=== PATIENT | male | born 1955 | race Caucasian/White ===

== ENCOUNTER 2017-02-10 15:45 | Inpatient (IN) | payer OTHER ==
[2017-01-31 15:36] LABS: ABSOLUTE BASOPHILS 0.1 thou/uL (0.0-0.2); ABSOLUTE EOSINOPHILS 0.2 thou/uL (0.0-0.7); ABSOLUTE LYMPHOCYTES 2.1 thou/uL (0.8-5.3); ABSOLUTE MONOCYTES 0.4 thou/uL (0.0-1.2); ABSOLUTE NEUTROPHILS 3.4 thou/uL (1.6-8.1); EOSINOPHILS 3.1 %; HEMATOCRIT 44.2 % (42.0-52.0); LYMPHOCYTES 33.9 %; MCH 30.9 pg (26.0-34.0); MCHC 33.9 g/dL (28.0-37.0); MCV 91.2 fL (80.0-100.0); MONOCYTES 7.2 %; MPV 7.8 fl. (7.2-11.1); NUCLEATED RBCS 0 /100WBC; PLATELET COUNT* 171 thou/uL (150-400); POLYS 54.8 %; RBC 4.85 mil/uL (4.50-6.00); RDW-CV 13.3 % (10.5-14.5); WBC 6.1 thou/uL (4.0-11.0)
[2017-01-31 15:42] LABS: APTT 28.5 Seconds (25.0-31.3)
[2017-01-31 15:47] LABS: CALCIUM 8.7 mg/dL (8.5-10.1); CREATININE 1.1 mg/dL (0.6-1.3); POTASSIUM 3.9 mmol/L (3.5-5.1)
[2017-01-31 15:52] LABS: ALBUMIN 3.9 g/dL (3.4-5.0); TOTAL BILIRUBIN 1.1 mg/dL (<0.1-1.0); TOTAL PROTEIN 6.9 g/dL (6.4-8.2)
--- NOTE | 2017-01-31 16:11 | EKG ---
[place] [address] ELECTROCARDIOGRAM REPORT Name: MIGEL SOTO Room: PRE IN [facility]#: [id number] Admission: Attend Phys: Demetrius Dumont Discharge: Date of : 59 Report #: [id number] THIS REPORT FOR: //name// [facility] Test Date: 2017-01-31 Test Time: 15:35:33 Pat Name: MIGEL SOTO Department: Room: Gender: M Literary Writer: : 1955 Requested By: Sean Lewis Order Number: [id number] Reading MD: Timur Ibarra Measurements Intervals Triangle Rate: 60 P: 51 CO: 176 QRS: 60 QRSD: 113 T: 9 QT: 421 QTc: 421 Interpretive Statements Sinus rhythm Borderline intraventricular conduction delay No previous ECG available for comparison Electronically Signed On 01-31-2017 16:11:23 SUPERVISOR [employer]URNA[employer] ROOM by Timur Ibarra [email or web address] <ELECTRONICALLY SIGNED> By: Timur Ibarra MD, [facility] 01/31/17 1611 1535 1535 Timur Ibarra MD, FACC /EPI
[2017-02-02 10:59] LABS: GLYCOHEMOGLOBIN (HGB A1C) 5.4
[~2017-02-10] VITALS: Ht 177.8 cm; Wt 102.1 kg
[~2017-02-10 15:45] MED LIST: DESVENLAFAXINE100 M2 PO; MOBIC15 MG PO; OMEGA-31000 M1 PO; TRUSOPT OCUMETE10 ML TOP; VITAMIN D35000 UNIT PO; XALATAN2.5 ML OPHTHALMIC
[2017-02-14 09:25] VITALS: BP 164/101
[2017-02-14 14:25] VITALS: BP 162/84
[2017-02-14 16:00] VITALS: BP 137/86
--- NOTE | 2017-02-14 18:45 | NUR ---
ASSUMED CARE OF PATIENT AFTER TRANSFER FROM PACU AT APPROXIMATELY 1430. PATIENT ORIENTED TO ROOM AND HAS SUPPORTIVE FAMILY AT BEDSIDE. ALERT AND ORIENTED X4. ASSESSMENT COMPLETED AND IS CHARTED. VSS ON ROOM AIR. PATIENT HAS HAD NO COMPLAINTS OF NAUSEA THIS SHIFT. PATIENT SAYS PAIN IS NOT BAD BUT WANTS TO START ON PAIN MEDS TO STAY AHEAD OF PAIN. GAVE 2 OXY AT APPROXIMATELY 1830. PATIENTS VSS HAVE BEEN STABLE BUT PULSE HAS BECOME ELEVATED IN THE LAST HOUR. PULSE OX FINGER PROBE CHANGED AND STILL SHOWING ELEVATED ON MONITOR. CHECKED VITALS ON DYNAMAP AND PULSE REMAINS ELEVATED. PAGED DR KENNEDY WITH THIS INFORMATION. HORLY ROUNDS HAVE BEEN MAINTAINED WHILE PATIENT WAS ON UNIT. CALL LIGHT IS WITHIN REACH. NURSING WILL CONTINUE TO MONITOR.
--- NOTE | 2017-02-14 18:52 | NUR ---
PATIENTS PULE HAS BECOME ELEVATED. CONTINUOUS PULSE MONITOR SHOWS PULSE RANGING FROM LOW 90'S TO MID 200'S. PULSE OF FINGER PROBED CHANGED AND STILL SHOWING ELEVATED PULSE. VITALS WERE TAKEN WITH DYNAMAP AND FOLLOWS. BP 126/81. PULSE 102. TEMP 98.8. RESPIRATIONS 16. OXYGEN SATURATION AT 93% ON ROOM AIR.
[2017-02-14 18:55] VITALS: BP 126/81
[2017-02-14 20:05] VITALS: BP 114/81
--- NOTE | 2017-02-14 23:18 | NUR ---
PATIENT ALERT AND ORIENTED. VITALS STABLE. CONTINUOUS PULSE OX IN PLACE. HEART RATE ON MONITOR IS ELEVATED TO MID 200S FOR A COUPLE OF SECONDS AND DROPS BACK DOWN TO 90-110. WHEN CHECKED MANUALLY HEART RATE WAS 102. DIFFERENT MONITOR AND PROBE APPLIED. HEART RATE CONTINUES TO BE ELEVATED ON CONTINUOUS PULSE OX. PHYSICIAN NOTIFIED. ORDERS RECEIVED TO TRANSFER PATIENT TO TELE. EKG RESULTS CALLED TO PHYSICIAN BY NURSING TOP CLEANER. DENIES CHEST PAIN AND ANY CARDIAC HISTORY. NURSING WILL CONTINUE TO MONITOR.
--- NOTE | 2017-02-15 | NUR ---
TRANSFER NOTE: PT UP TO TELE FLOOR AT THIS TIME. NO PAIN. AT BEDSIDE. IVF INFUSING. AGREE WITH ASSESSMENT CHARTED. TELE MONITOR APPLIED, TRACING NSR RATE 90'S NOT ECTOPY. ICE PACK TO L HIP FOR COMFORT. ORIENTED TO ROOM. WILL CONT TO MONITOR.
--- NOTE | 2017-02-15 01:57 | NUR ---
REC REPORT FROM TELE-RN AT THIS TIME.
--- NOTE | 2017-02-15 03:48 | NUR ---
I REVIEWED PREVIOUS RN'S ASSESSMENT, I AM IN AGREMENT WITH IT. PT AND I DISCUSSED PAIN CONTROL, PT REC PO PAIN MEDS DECIDED TO TRY 5 MG VS 10 MG AND WILL MAKE NEEDS KNOWN IF IT DOESN'T HELP HIS 1/10 PAIN LEVEL, PT REPORTED HE IS WANTING TO STAY ON THE PAIN MEDS FOR THE FIRST DAY AND UNTIL HE'S UP WITH THERAPY, DRESSING TO L-HIP C/D/I, ICE PACKS BEING UTILIZED, AREA NOTED TO HAVE SOME BRUISING WITH NO SWELLING NOTED, FALL PRECAUTIONS IN PLACE AND PT ABLE TO VOICE NEEDS. WILL CONT TO MONITOR.
[2017-02-15 03:58] VITALS: BP 113/76
[2017-02-15 05:07] LABS: HEMATOCRIT 37.7 % (42.0-52.0)
--- NOTE | 2017-02-15 06:58 | NUR ---
NO ACUTE CHANGES WITH PT OVER NIGHT, MEDS PER CHARTING, FALL PRECAUTIONS REMAIN IN PLACE, SR ON THE MONITOR, DRESSING REMAINED C/D/I, AND VSS. WILL CONT TO MONITOR.
[2017-02-15 08:00] VITALS: BP 120/80
[2017-02-15 11:02] VITALS: BP 113/76
[2017-02-15 12:00] VITALS: BP 133/68
[2017-02-15 12:01] VITALS: BP 113/76
--- NOTE | 2017-02-15 12:04 | NUR ---
MET WITH PT TO DISCUSS HOME SITUATION/DC PLANNING. PT LIVES WITH , PLANS TO RETURN HOME AT DC. PT HAS BEEN INDEPENDENT AND ACTIVE, USES NO EQUIPMENT AND WORKS OUTSIDE THE HOME. IS RETIRED AND WILL BE WITH PT AT HOME AT DC. PT HAS DC ORDERS. NO HH OR OUTPT ORDERED, PT STATES HE DISCUSSED WITH DR FRANKS POST DC INSTRUCTIONS. PT WORKED WITH THERAPY, NEEDS WALKER, OBTAINED APPROVAL FROM [employer] TO DISPENSE WALKER. VARUN/PT HERE AND DISPENSED WALKER TO PT. CALLED IN [place] TO [email or web address] ON [address], COPAY IS $42.05. PT MADE AWARE, GAVE PT COPAY ELIQUIS CARD. PT STATES HE HAS A F/U APPT ON 03/02 AREADY SCHEDULED. PT DENIES OTHER NEEDS. DISCUSSED WITH SILAS GONZALEZ
[2017-02-15] MEDS ORDERED: ELIQUIS2.5 MG PO (13:58)
[2017-02-15] MEDS ORDERED: OXYCODONE HCL 55 MG PO (13:59)
--- NOTE | 2017-02-15 14:40 | NUR ---
ORDER RECEIVED TO DISCHARGE PATINET HOME TO SELF CARE. MED REC, MEDICATION EDUCATION , STROKE EDUCATION, AND NEED FOR FOLLOW UP APPOINTMENTS FOR POST SURGICAL ASSESSMENT. PT WALKED PATINET AND ASSESSED GAIT WITH WALKER USAGE. VITAL SIGNS STABLE AND PATIENTS PAIN WELL CONTROLLED WITH PO MEDICATIONS. IV DC'D. PATINET EDUCATED ABOUT NEED FOR AMBULATION AND WALKER USAGE. PATINET TAKEN VIA WHEELCHAIR TO AWAITING CAR BY RN AND WITH SPOUSE PRESENT. DC TIME 16:30.
--- NOTE | 2017-02-15 17:01 | EKG ---
[place] [address] ELECTROCARDIOGRAM REPORT Name: MIGEL SOTO Room: [address] IN R#: [id number] Admission: 02/14/17 Attend Phys: Demetrius Dumont Discharge: 02/15/17 Date of : 59 Report #: [id number] THIS REPORT FOR: //name// [facility] Test Date: 2017-02-14 Test Time: 22:45:52 Pat Name: MIGEL SOTO Department: Room: [facility] Gender: M Turf Keeper: CATHIE : 1955 Requested By: Asmita Huston Order Number: [id number] Ifrah MD: Johnathan Stevenson Measurements Intervals Branch Rate: 102 P: 21 [place]: 160 QRS: 63 QRSD: 107 T: -26 QT: 351 QTc: 458 Interpretive Statements Sinus tachycardia Low voltage, precordial leads Abnormal R-wave progression, late transition Borderline repolarization abnormality Compared to ECG 01/31/2017 15:35:33 Low QRS voltage now present Sinus rhythm no longer present Electronically Signed On 02-15-2017 17:01:46 AUTOMAT[employer]ER by Johnathan Stevenson [email or web address] <ELECTRONICALLY SIGNED> By: Johnathan Stevenson MD, FACC 02/15/17 1701 2245 2245 Johnathan Stevenson MD, FAC /EPI
--- NOTE | 2017-02-16 14:31 | S ---
[address] [address] SURGICAL PATH RPT PROCEDURE Name: MIGEL SOTO Room: [address] IN [facility].#: [id number] Admission: 02/14/17 Date of : 59 Discharge: 02/15/17 Report #: [id number] Path Case #: [id number] PATHOLOGY REPORT COLLECTION DATE: 02/14/2017 RECEIVED DATE: 02/14/2017 SUBMITTING PHYS: Dr. Sean Lewis OTHER PHYS: Dr. Boyd Vazquez SPECIMEN(S) RECEIVED: A.Left femoral head, bone and tissue * * * * * * * * * * * * FINAL DIAGNOSIS: Left femoral head bone and tissue: - Benign dense fibrous connective tissue and benign femoral head with severe degenerative changes. (NAZARIO:an; 02/16/2017) PATHOLOGIST: Javon Marin M.D. REPORT ELECTRONICALLY SIGNED BY: Javon Marin M.D. DATE/TIME: 02/16/2017 14:31 * * * * * * * * * * * * GROSS PATHOLOGY: Received in formalin labeled "Migel Soto, left femoral head with bone and tissue," is a femoral head measuring 5.6 x 5.5 x 4.4 cm in greatest dimensions admixed with dark shaw-yellow soft tissue. The articular surface is smooth to granular and pale shaw to dark brown in appearance, displaying a well-circumscribed area of focal eburnation measuring 4.3 x 2.8 cm. Sectioning the bone reveals pale yellow and slightly hemorrhagic cut surfaces. Press Officer tissue is submitted in cassette A1, following decalcification. (DAC; 02/15/2017) CLINICAL HISTORY: Pre-op diagnosis: Left hip DJD Post-op diagnosis: Left hip pain INITIAL CPT CODE(S): A; 43988, 68998 Professional services performed by [facility] [place] [address] SURGICAL PATH RPT PROCEDURE Name: MIGEL SOTO Room: [address]#: [id number] Admission: 02/14/17 Date of : 59 Discharge: 02/15/17 Report #: [id number] Path Case #: [id number] Technical services performed by [facility] at [address] [place] [address], [facility] [address] [address]. [facility] [place] [address] PHONE: [phone] DIRECTOR: Zacarias Mcrae M.D. * * * END OF REPORT * * *
--- NOTE | 2017-03-28 09:23 | OP ---
[address] [address] OPERATIVE REPORT Name: MIGEL SOTO Room: [address]#: [id number] Admission: 02/14/17 Attend Phys: Demetrius Dumont Discharge: 02/15/17 Date of : 59 Report #: [id number] THIS REPORT FOR: //name// CC: Reza Bahena DATE OF SERVICE: 02/14/2017 PREOPERATIVE DIAGNOSIS: Advanced degenerative joint disease of the left hip. POSTOPERATIVE DIAGNOSIS: Advanced degenerative joint disease of the left hip. PROCEDURE: Left total hip arthroplasty with anterior approach. SURGEON: Sean Lewis DO ANESTHESIA: General endotracheal. COMPLICATIONS: None. ANTIBIOTICS: 2 grams of Ancef IVPB 30 minutes prior to incision. COMPLICATIONS: None. ESTIMATED BLOOD LOSS: 750 mL with 375 mL given back via Cell Saver. SPECIMENS: Femoral head sent to pathology. IMPLANTS: A Biomet G7 finned acetabular shell 58 mm, two 6.5 x 25 and a 6.5 x 30 mm screw, a 36 mm G7 acetabular liner high wall, a Biolox taper adapter with a +3 mm neck. A 14 x 113 mm high offset Taperloc femoral component and a 38 mm ceramic head. INDICATIONS FOR SURGERY: The patient is a 62-year-old male who has failed conservative treatment for severe degenerative joint disease of a left hip. He is here today for elective surgical intervention. Risks and complications were discussed in detail with the patient. This includes but not limited to neurovascular damage, infection, fracture, need for further surgery, failure of the prosthesis, recall of the prosthesis, allergy developed to the metal of the prosthesis, deep vein thrombosis, pulmonary emboli, myocardial infarction, rhabdomyolysis, and even . We discussed even things that rarely ever happen such as amputation and other problems associated with the surgery. We discussed anesthesia, its risks and complications, although they will cover this in better detail and blood loss with transfusions and its risks and complications. All questions were answered. [place] [address] OPERATIVE REPORT Name: MIGEL SOTO Room: [address]#: [id number] Admission: 02/14/17 Attend Phys: Demetrius Dumont Discharge: 02/15/17 Date of : 59 Report #: [id number] attached to chart, may refer to and his hip was marked preoperatively for timeout technique. DESCRIPTION OF PROCEDURE: The patient was taken to the operating room suite, placed on the operating table in supine position. Following a general endotracheal anesthetic, the patient is very well positioned and padded on the [place] table. All pressure points were well padded. Left hip was then made appropriate surgical site with timeout technique. An incision was made approximately 4-6 cm in length along the anterolateral aspect of the hip, approximately 2 cm posterior to and inferior to the ASIS. Incision was carried through skin and subcutaneous tissue down to the tensor fascia. The tensor fascia was then incised approximately a centimeter posterior to an interval between tensor fascia lise and sartorius. This interval was developed with finger dissection down to the anterior hip capsule. Appropriate retractors were placed. The capsule was visualized. The circumflex vessels are treated with the Aquamantys and resected. The capsule was then treated with the Aquamantys and resected anteriorly. This brings the femoral neck and head into view. It is quite osteoarthritic with osteophytic lipping throughout. Femoral neck was then resected, once at the base of femoral neck, a fingerbreadth above the lesser trochanter and second at the base of femoral head. The napkin ring portion of the neck was removed with a bone tenaculum, followed by removal of the femoral head with bone tenaculum. The acetabulum was then prepared by removing all acetabular labral components. Then, reaming the acetabulum to one below the final cup size, which was a 57 mm reamer. The final reaming was done under C-arm fluoroscopy to verify appropriate alignment and depth. The final cup was obtained and prepared on the back table, sprinkled with vancomycin powder, impacted firmly into the incision. It is checked with C-arm fluoroscopy for alignment and depth of ____. The impactor was removed. Two drill holes were then performed and measured and the appropriate drill sizes were placed. Once that was performed, the high wall liner was then placed in these with high wall in the superior anterior direction. A C-arm was utilized throughout the procedure to verify appropriate reduction, appropriate alignment of screws and sizes. Attention was then turned to the femur. The [place] table was positioned appropriately to bring the proximal femur into place. Proximal femur was then prepared with a box osteotome, followed by a rattail broach and it was sequentially broached to a size 14 mm Taperloc stem trial. A trial reduction was performed. The hip was placed through full range of motion with various sized neck lengths involved. Intraoperative x-rays were obtained to verify an approximate neck length compared to the contralateral hip. Excellent stability was noted with this configuration, therefore, the final components were obtained. All trial components were removed. Copious irrigation carried out throughout the incision. Hemostasis achieved with the use of electrocautery and direct pressure. The incision was injected with the anesthetic solution. The incision was then sprinkled with the remaining 2 grams of vancomycin powder throughout the entire incision. The final head and neck was then impacted firmly onto a Simmons taper neck. The hip was [place] [address] OPERATIVE REPORT Name: MIGEL SOTO Room: [address] IN [facility]#: [id number] Admission: 02/14/17 Attend Phys: Demetrius Dumont Discharge: 02/15/17 Date of : 59 Report #: [id number] stability and found to be extremely stable in all facets of motion. The final x-rays were obtained, printed off on C-arm fluoroscopy. The patient is doing well. No complications were encountered. His incision was then closed with a running #1 Stratafix suture to the tensor fascia itself. The skin was reapproximated with 2-0 Monocryl subcutaneous sutures, followed by 3-0 Stratafix subcuticular suture reinforced with Dermabond glue. A Mepilex dressing was applied, followed by thigh high SHILPA hose. The patient was taken to recovery room in stable condition. No complications were encountered. Final instrument counts and sponge counts were correct x 2. <ELECTRONICALLY SIGNED> By: Sean Lewis DO 03/28/17 0923 1500 1721Robert Jessy Lewis DO /nt
== END 2017-02-15 14:29 | disposition home or self-care (01) | DRG 470 ==
LOC: M.PRE 15:45 → M.2W 02-14 09:16 → M.TBA 02-14 09:16 → M.PRE 02-14 09:20 → M.ORTHSURG 02-14 14:43 → M.PRE 02-14 15:19 → M.2W 02-14 23:19
PROVIDERS: Orthopaedic Surgery; ADMIT Internal Medicine
PROC: 0SRB0JZ Replacement of Left Hip Joint with Synthetic Substitute, Open Approach (ICD-10-PCS; principal; 2017-02-14)
DX: M16.12 Unilateral primary osteoarthritis, left hip (principal); R00.0 Tachycardia, unspecified; H40.9 Unspecified glaucoma; Z79.899 Other long term (current) drug therapy